=== PATIENT | male | born 1990 ===

== ENCOUNTER 2018-08-15 10:43 | Emergency (ER) | payer OTHER ==
[2018-08-15] MEDS ORDERED: Tdap Vaccine 0.5 ml Vial (10-64 yrs) IM ONE ×2 (11:17→11:33)
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
[2018-08-15 13:15] VITALS: BP 122/78; PULSE 77; RESP 17; TEMP 98
--- NOTE | 2018-08-15 13:38 | RAD ---
PROCEDURE: Left Hand Radiographs. HISTORY: trauma COMPARISON: None. FINDINGS: BONES: No acute fracture. Postoperative changes related to prior scaphoid surgical procedure. No hardware abnormalities identified. JOINTS: Normal. No osteoarthritic changes. SOFT TISSUES: Normal. OTHER FINDINGS: None. IMPRESSION: No acute findings related to/accounting for the clinical presentation.
[2018-08-15 15:38] VITALS: O2SAT 99
== END 2018-08-15 13:00 | disposition home or self-care (01) ==
LOC: H.ER 10:43
DX: S69.92XA Unspecified injury of left wrist, hand and finger(s), initial encounter (principal); W19.XXXA Unspecified fall, initial encounter; Y92.89 Other specified places as the place of occurrence of the external cause; Z88.0 Allergy status to penicillin